=== PATIENT | female | born 1970 | race Caucasian/White ===

== ENCOUNTER 2022-02-19 09:28 | Inpatient (IN) ==
[2022-02-20] MEDS ORDERED: ANCEF VIAL 1 GRAM IVP ONE (06:39)
[2022-02-20] MEDS ORDERED: NS 100 ML IV 100 ML ONE (06:44)
[2022-02-20] MEDS ORDERED: BETADINE SOLN ONE (06:56)
[2022-02-20] MEDS ORDERED: PRECEDEX INJ VIAL IVP ONE (06:59)
[2022-02-20] MEDS: D5 1/2 NS 1,000 ML 1,000 ML IV SCH ×2 (07:00→20:47)
[2022-02-20] MEDS ORDERED: MAGNESIUM SULFATE 1 GRAM/100 mL PREMIX 1 G/100 ML BAG IV ONE (07:09)
[2022-02-20] MEDS ORDERED: DIPRIVAN VIAL 20 ML ONE (07:12)
[2022-02-20] MEDS ORDERED: XYLOCAINE 2 % (PLAIN) ONE (07:12)
[2022-02-20] MEDS ORDERED: ZOFRAN INJ 4 MG VIAL ONE (07:13)
[2022-02-20] MEDS ORDERED: BENADRYL INJ 50 MG VIAL ONE (07:13)
[2022-02-20] MEDS ORDERED: PEPCID 20 MG VIAL ONE (07:13)
[2022-02-20] MEDS ORDERED: DECADRON INJ ONE (07:13)
[2022-02-20] MEDS ORDERED: ZEMURON 100 MG VIAL ONE (07:13)
[2022-02-20] MEDS ORDERED: KETAMINE HCL ONE (07:27)
[2022-02-20] MEDS ORDERED: DILAUDID INJ ONE ×2 (07:30→10:30)
[2022-02-20] MEDS ORDERED: NEO-SYNEPHRINE INJ ONE (07:48)
[2022-02-20 08:49] LABS: HEMATOCRIT 28.8 % (36.0-47.0); HEMOGLOBIN 9.2 g/dL (12.0-16.0)
[2022-02-20] MEDS ORDERED: NS 500 ML IV 0 ML IV ONE (08:58)
[2022-02-20] MEDS ORDERED: ProvayBLUE 0.5% ONE (09:03)
[2022-02-20] MEDS ORDERED: BRIDION ONE (09:47)
[2022-02-20] MEDS ORDERED: NS 500 ML IV 500 ML IV ONE (09:49)
[2022-02-20] MEDS ORDERED: ZOFRAN INJ 4 MG VIAL IVP PRN ×2 (10:20→12:59)
[2022-02-20] MEDS ORDERED: DILAUDID INJ IVP PRN (10:20)
[2022-02-20] MEDS ORDERED: PHENERGAN INJ 25 MG IM PRN (10:20)
[2022-02-20] MEDS ORDERED: BARHEMSYS INJ IVP PRN (10:20)
[2022-02-20 10:26] LABS: BILIRUBIN,URINE NEGATIVE (NEGATIVE); BLOOD/HEMOGLOBIN,URINE 1+ (NEGATIVE); GLUCOSE, URINE NEGATIVE (NEGATIVE); KETONES,URINE NEGATIVE (NEGATIVE); LEUKOCYTE ESTERASE ,URINE NEGATIVE (NEGATIVE); NITRITES,URINE NEGATIVE (NEGATIVE); PROTEIN,URINE NEGATIVE (NEGATIVE); UROBILINOGEN,URINE NORMAL (NORMAL)
[2022-02-20 10:53] LABS: APPEARANCE,URINE CLEAR (CLEAR); COLOR,URINE YELLOW (YELLOW)
[2022-02-20 10:54] LABS: BACTERIA,URINE TRACE /HPF (NEGATIVE); RBC,URINE 0-2 /HPF (0-3); SQUAMOUS EPITHELIAL CELL,UR RARE /HPF (NEGATIVE)
[2022-02-20 10:55] LABS: CALCIUM OXALATE CRYSTALS,UR FEW /HPF (NEGATIVE)
[2022-02-20 10:56] LABS: URIC ACID CRYSTALS,URINE MANY /HPF (NEGATIVE)
[2022-02-20] MEDS ORDERED: MORPHINE SULFATE PCA 30 MG IVP PRN (12:59)
[2022-02-20] MEDS ORDERED: BENADRYL INJ 50 MG VIAL IVP PRN (12:59)
[2022-02-20] MEDS ORDERED: TORADOL 30 MG VIAL IVP PRN (12:59)
[2022-02-20] MEDS ORDERED: NS 250 ML IV 250 ML IV ONE (13:44)
[2022-02-20 18:16] LABS: HEMATOCRIT 32.7 % (36.0-47.0); HEMOGLOBIN 10.6 g/dL (12.0-16.0)
[2022-02-21 04:50] LABS: BASOPHILS % (AUTO) 0.3 % (0.2-1.0); EOSINOPHILS % (AUTO) 0.1 % (0.9-2.9); HEMATOCRIT 29.9 % (36.0-47.0); HEMOGLOBIN 9.9 g/dL (12.0-16.0); LYMPHOCYTES # (AUTO) 1.1 X10^3/uL (1.3-2.9); LYMPHOCYTES % (AUTO) 10.1 % (21.0-51.0); MEAN CORPUSCULAR HEMOGLOBIN 26.9 pg (27.0-34.0); MEAN CORPUSCULAR HGB CONC 33.1 g/dL (33.0-35.0); MEAN CORPUSCULAR VOLUME 81.2 fL (80.0-100.0); MEAN PLATELET VOLUME 10.6 fL (7.4-11.0); MONOCYTES # (AUTO) 1.1 x10^3/uL (0.3-0.8); MONOCYTES % (AUTO) 10.6 % (0.0-13.0); NEUTROPHILS # (AUTO) 8.3 x10^3/uL (2.2-4.8); NEUTROPHILS % (AUTO) 78.9 % (42.0-75.0); RED BLOOD COUNT 3.68 X10^6/uL (3.5-5.4); RED CELL DISTRIBUTION WIDTH 20.9 % (11.6-16.5); WHITE BLOOD COUNT 10.5 X10^3/uL (3.6-10.0)
[2022-02-21 04:52] LABS: BLOOD UREA NITROGEN 7 mg/dL (7-18); CALCIUM 8.1 mg/dL (8.5-10.1); CARBON DIOXIDE 26.1 mmol/L (21-32); CHLORIDE 107 mmol/L (98-107); COR NA(FOR HYPERGLY) 139 mmol/L (136-145); CREATININE 0.81 mg/dL (0.55-1.02); SODIUM 138 mmol/L (136-145); eGFR NON BLACK RACES > 60 (>60)
[2022-02-21 05:15] LABS: ANISOCYTOSIS 1+; HYPOCHROMASIA SLIGHT; PLATELET MORPHOLOGY COMMENT NORMAL (NORMAL)
[2022-02-21] MEDS: SYNTHROID 125 mcg TAB PO SCH (06:16)
[2022-02-21] MEDS ORDERED: MOTRIN TAB 800 MG PO PRN (07:14)
[2022-02-21] MEDS ORDERED: PERCOCET TAB 5/325 MG PO PRN (07:14)
[2022-02-21] MEDS: D5 1/2 NS 1,000 ML 1,000 ML IV SCH ×7 (07:48→21:49)
[2022-02-21] MEDS: COLACE CAP 100 MG PO SCH ×2 (08:44→20:32)
[2022-02-21] MEDS: ESTRACE PO SCH (08:45)
[2022-02-21] MEDS: ZESTRIL TAB 40 MG PO SCH ×2 (08:46→09:19)
[2022-02-21] MEDS ORDERED: LOVENOX INJ 40 MG SYR SC SCH (10:00)
[2022-02-21] MEDS: BACTROBAN TOPICAL OINT TOP SCH ×2 (14:42→21:37)
[2022-02-21] MEDS ORDERED: MILK OF MAGNESIA PO PRN (17:06)
[2022-02-22] MEDS: D5 1/2 NS 1,000 ML 1,000 ML IV SCH (06:03)
[2022-02-22] MEDS: SYNTHROID 125 mcg TAB PO SCH (06:04)
[2022-02-22] MEDS: BACTROBAN TOPICAL OINT TOP SCH (06:04)
[2022-02-22 08:14] VITALS: BP 127/67
[2022-02-22] MEDS: COLACE CAP 100 MG PO SCH (08:42)
[2022-02-22] MEDS: ESTRACE PO SCH (08:42)
[2022-02-22] MEDS: ZESTRIL TAB 40 MG PO SCH (08:42)
== END 2022-02-22 09:00 | disposition home or self-care (01) | DRG 743 ==
LOC: MED/SURG 02-20 06:20
PROVIDERS: ADMIT Specialist; ATTEND Specialist
DX: N92.5 Other specified irregular menstruation; N92.0 Excessive and frequent menstruation with regular cycle; D25.9 Leiomyoma of uterus, unspecified; D50.8 Other iron deficiency anemias; I10 Essential (primary) hypertension